=== PATIENT | female | born 1985 | race Caucasian/White ===

== ENCOUNTER 2024-02-18 18:26 | Observation (INO) ==
--- NOTE | 2024-02-18 19:02 | History & Physical Report ---
Date of Service February 18, 2024 Assessment & Plan (1) Uterine contractions: Plan: Pelvic pain and active toco suggestive of PTL, however cervix could be c/w multiparity or labor. Need re-assessment over time to discern. BP initially just into HTN range, and has had one prior elevated BP at recent office visit. Denies MARTINEZ, RUQ pain, new edema, vision changes. Does not c/o urinary symptoms. Will run labs to assess for possible causes including PIH, however seems most suspicious for PTL at this time. 35wk would be eligible for delivery here if so; will notify peds if dx confirms. History of Present Illness Primary Care Provider: NO PCP 38yo at 35w0d presents to L&D without calling ahead. On arrival she c/o contractions that began at 5pm, with low pelvic pain more on the L than the R, that is constant but with peaks that come and go. She is noted to breathe through some of the peaks by the rooming RN. Patient did not take anything or do anything for this and declines tylenol when offered, saying "I don't take medicine." No LOF, no VB, good FM. 3x prior deliveries vaginally at [facility]. Now receiving care with [facility]. noted to be c/b Insulin-requiring GDM for which the patient has refused start of insulin, LGA (EFW's 96 @ bee -->82% more recently), AMA age 38, IVF , mild pyelectasis which has resolved on more recent scans, and Rubella nonimmune status. Allergies Allergy/AdvReac Type Severity Reaction Status Date / Time No Known Allergies Allergy Verified 02/13/24 16:03 Home Medications Medication Instructions Recorded Confirmed Type vit 168-iron 27 mg-folic cap PO 08/17/23 02/13/24 History acid 800 mcg-omega3 235 mg capsule (One-A-Day -1) acetone (urine) test (Ketone Urine #50 ea 09/11/23 02/13/24 Rx Test strips) blood sugar diagnostic (OneTouch #150 ea 09/11/23 02/13/24 Rx Verio test strips) blood-glucose meter (OneTouch #1 ea 09/11/23 02/13/24 Rx Verio Reflect Meter) lancets 33 gauge (OneTouch Delica #150 ea 09/11/23 02/13/24 Rx Plus Lancet) blood-glucose sensor (FreeStyle #2 ea 10/26/23 02/13/24 Rx Arsen 3 Sensor device) Patient History Surgical History H/O bilateral salpingectomy Hx of breast implants, bilateral S/P LEEP of cervix Status post colposcopy Family History (Updated 08/17/23 @ 10:04 by Alba Pal) Grandfather Colorectal cancer Other Abdominal aneurysm Hypertension Stroke Social History (Updated 08/17/23 @ 10:07 by Alba Pal) Smoking Status: Former smoker Do You Dip or Chew Tobacco: No; marital status: Single marital status details: Arnulfo- (28 ) [phone] Current Living Situation: Significant Other Current Living Situation Comment: lives with fob, 3 children, 1 dog, 1 cat, daughter changes litter current occupational status: employed 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
[2024-02-18 19:11] LABS: Mean Corpuscular Hemoglobin 31.9 pg (25.0-34.0); Mean Corpuscular Hgb Conc 34.1 g/dL (32.0-36.0); Mean Corpuscular Volume 93.4 fL (80.0-100.0); Mean Platelet Volume 11.3 fL (9.4-12.4); Platelet Count 187 K/uL (130-400); RDW Coefficient of Variation 12.6 % (11.5-14.5); RDW Standard Deviation 43.3 fL (36.4-46.3); Red Blood Count 4.39 M/uL (4.20-5.40); White Blood Count 10.75 K/ul (4.8-10.8)
[2024-02-18 19:36] LABS: Appearance Urine Clear (Clear); Bilirubin Urine Negative (Negative); Blood Urine Negative (Negative); Color Urine Yellow; Glucose Urine UA Negative (Negative); Ketones Urine Trace (Negative); Leukocyte Esterase Urine Negative (Negative); Nitrite Urine Negative (Negative); Protein Urine Negative (Negative); Specific Gravity Urine 1.007 (1.000-1.030); Urobilinogen Urine Negative (Negative)
[2024-02-18 19:42] LABS: Albumin Globulin Ratio 1.2 (0.9-2); Albumin Level 3.2 gm/dl (3.4-5.0); BUN Creatinine Ratio 10.3 (10-20); Bilirubin,Total 0.4 mg/dl (0.2-1.0); Calcium 8.6 mg/dl (8.6-10.3); Creatinine Clr Calc Pharmacy 108.1 ml/min; Est GFR (African American) 129.5 ml/min; Est GFR (Non-African American) 111.7 ml/min; Globulin 2.6 gm/dl (2.5-4.0); Potassium 3.6 mmol/L (3.5-5.1); Total Protein 5.8 gm/dl (6.0-8.3)
[2024-02-18 19:57] LABS: Total Protein Urine Random 8.1 mg/dl (0-11.9)
[2024-02-18] MEDS ORDERED: LIDOCAINE 1% LOCAL 20 ML VIAL INFIL PRN (20:01)
[2024-02-18] MEDS ORDERED: OXYTOCIN 30 UNITS/NSS 30 UNITS/500 ML BAG IV PRN (20:01)
[2024-02-18 20:02] LABS: Protein Creatinine Ratio Urine 0.2 (0-0.2)
[2024-02-18] MEDS: LACTATED RINGER'S 1,000 ML IV PRN (20:13)
[2024-02-18] MEDS: BETAMETH SOD PHOS/ACETATE IA 6 MG/ML IM STA (20:20)
[2024-02-18] MEDS: PENICILLIN GK 6 MU in DEXTROSE 5% 250 ML IV STA (20:45)
--- NOTE | 2024-02-18 20:46 | Communication Note ---
Date of Service: February 18, 2024 Labs reassuring. Hgb noted at 14 but patient quit smoking 4 years ago, denies nicotine/THC. Cervix changed to 2cm/80/-2, confirming PTL. 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 Discussed 35wk+ we deliver here at [facility], zeke danilea is [facility]. BMTZ would be given now and repeat in 24hr if able. GA too advanced to need Mag for neuroprotection and would not recc tocolysis. Will IV hydrate and hope for stabilization, but ready to manage if labor proceeds. Prior deliveries all at term, although patient had two of her prior deliveries many years ago with one more-recent term . H/o LEEP noted.
[2024-02-19] MEDS: PENICILLIN GK 3 MU in DEXTROSE 5% 100 ML IV PRN (00:40)
--- NOTE | 2024-02-19 09:40 | Obstetrical Progress Note ---
Date of Service February 19, 2024 Assessment & Plan (1) Uterine contractions: (2) with 35 completed weeks gestation: Plan No further evidence of jose. Contractions have spaced and no further cervical change . Plan d/c home. Precautions reviewed. To call with any changes. Come back to labor and delivery tonight at 8pm for second dose of steroids. Fetus category one. Should be seen in the office on or for close f/u. Admission and Anticipated Discharge Date Admission Date: February 18, 2024 Subjective Patient resting comfortably in bed. Notes she is feeling much better this am. Much less pain. Still noting an occasional contraction but much less. Last check was at 8:30am with Dr. Oneil and received sign out from her at 7:30 am. No vb/lof. Good fm. Physical Exam Physical Exam: cx--80/-2, no change form early this am and probably before that as had not been checked since late last night. toco--Q6 or more spaced. efm--category one, reactive nst. Results & Data Vital Signs (Past 12 Hours) Vital Signs Temp Pulse Resp BP 02/19/24 07:02 36.7 C 81 20 111/67 02/19/24 03:09 18 02/19/24 03:09 36.8 C 96 H 18 99/58 L 02/18/24 22:57 36.8 C 89 18 125/71 PG Care Time/CCT Total # of Minutes Spent Total Time Spent with Patient: Total time spent is greater than 50% in coordination of care (as documented) at patient's floor/unit and/or counseling patient: Coding Level of Care Code 49237 SUB INP/OBS CARE 1/25MIN Diagnoses Uterine contractions O47.9 with 35 completed weeks gestation Z3A.35
[2024-02-19] MEDS ORDERED: BETAMETH SOD PHOS/ACETATE IA 6 MG/ML IM SCH (20:15)
== END 2024-02-19 09:58 | disposition home or self-care (01) ==
LOC: OPB 18:26 → 4S1 18:28 → INTOOBSV 20:02 → 4S1 20:02

== ENCOUNTER 2024-03-20 10:47 | Inpatient (IN) ==
[2024-03-20 12:30] LABS: Creatinine Urine Random 62.4 mg/dl; Protein Creatinine Ratio Urine 0.3 (0-0.2); Total Protein Urine Random 15.8 mg/dl (0-11.9)
[2024-03-20 12:36] LABS: Albumin Globulin Ratio 1.2 (0.9-2); BUN Creatinine Ratio 10.8 (10-20); Bilirubin,Total 0.5 mg/dl (0.2-1.0); Calcium 8.6 mg/dl (8.6-10.3); Creatinine Clr Calc Pharmacy 89.7 ml/min; Est GFR (African American) 104.4 ml/min; Est GFR (Non-African American) 90.1 ml/min; Globulin 2.5 gm/dl (2.5-4.0); Total Protein 5.5 gm/dl (6.0-8.3)
[2024-03-20 12:39] LABS: Basophils # (auto) 0.04 K/uL (0.00-0.20); Basophils % (auto) 0.4 %; Hematocrit (blood only) 40.6 % (37.0-47.0); Hemoglobin 14.1 g/dl (12.0-16.0); Immature Granulocytes # (auto) 0.07 K/uL (0.01-0.20); Immature Granulocytes % (auto) 0.7 %; Lymphocytes # (auto) 1.92 K/uL (1.20-3.40); Lymphocytes % (auto) 19.7 %; Mean Corpuscular Hgb Conc 34.7 g/dL (32.0-36.0); Mean Corpuscular Volume 92.3 fL (80.0-100.0); Mean Platelet Volume 11.6 fL (9.4-12.4); Monocytes # (auto) 0.65 K/uL (0.11-0.59); Monocytes % (auto) 6.7 %; Neutrophils # (auto) 6.96 K/uL (1.40-6.50); Neutrophils % (auto) 71.5 %; Platelet Count 175 K/uL (130-400); RDW Coefficient of Variation 12.3 % (11.5-14.5); RDW Standard Deviation 41.8 fL (36.4-46.3); White Blood Count 9.74 K/ul (4.8-10.8)
[2024-03-20] MEDS ORDERED: LIDOCAINE 1% LOCAL 20 ML VIAL INFIL PRN (15:02)
[2024-03-20] MEDS ORDERED: OXYTOCIN 30 UNITS/NSS 30 UNITS/500 ML BAG IV PRN ×2 (15:02→22:09)
--- NOTE | 2024-03-20 15:07 | History & Physical Report ---
Date of Service March 20, 2024 Assessment & Plan (1) Encounter for induction of labor: (2) Gestational diabetes mellitus (GDM) affecting , antepartum: (3) Supervision of elderly multigravida: (4) resulting from in vitro fertilization, antepartum: Plan Pt not really meeting strict criteria for gest htn but has had some bps that are concerning. Offered elective induction. She accepts. Wants arom to start but explained in 1-2hr from arom will plan pitocin and she agrees. Admit, iv, arom when pt ready per nursing, no room to start induction based on avail LD beds. plan rhogam eval pp and mmr pp. History of Present Illness Chief Complaint: elevated bps Primary Care Provider: NO PCP 38yo at 39+wks aryan presented to LD from office with elevated bps. She notes had routine appt today. No woods or visual change or ruq pain at that time. No worsening swelling. BP on arrival here was elevated as well but 4hr l ater did not meet criteria. Still bps in office did meet criteria for gest htn and given her ega offered induction and she desires. Now having woods. Earlier labs checked and nl. Urine prot/creat ratio was .3. She has asked about arom to see if labors but then says she will accept pitocin if needed. Alternative given to go home but would need office eval tomorrow. She prefers to stay for induction. PNC c/b 1. ivf/icsi 2. gdm-- poor compliance, *elevated AC at 93%* note from dietary--postprandial spikes. Will not take insulin. "not really interested in changing diet"-Patient monitoring diet per chart 3. ama 4. Rh neg, had rhogam, eval pp 5. MMR pp PNL rh neg, rubella equiv, gbs neg. OBH: x 3 GYNH: nl paps no stds Allergies Allergy/AdvReac Type Severity Reaction Status Date / Time No Known Allergies Allergy Verified 03/20/24 09:42 Home Medications Medication Instructions Recorded Confirmed Type vit 168-iron 27 mg-folic 1 cap PO DAILY 08/17/23 03/20/24 History acid 800 mcg-omega3 235 mg capsule (One-A-Day -1) acetone (urine) test (Ketone Urine #50 ea 09/11/23 03/20/24 Rx Test strips) blood sugar diagnostic (OneTouch #150 ea 09/11/23 03/20/24 Rx Verio test strips) blood-glucose meter (OneTouch #1 ea 09/11/23 03/20/24 Rx Verio Reflect Meter) lancets 33 gauge (OneTouch Delica #150 ea 09/11/23 03/20/24 Rx Plus Lancet) blood-glucose sensor (FreeStyle #2 ea 10/26/23 03/20/24 Rx Arsen 3 Sensor device) Patient History Medical History (Updated 03/20/24 @ 15:11 by Anais Dean MD, FACOG) In vitro fertilization (spontaneous vaginal delivery) 2004,2005,2018 Surgical History H/O bilateral salpingectomy Hx of breast implants, bilateral Status post colposcopy S/P LEEP of cervix Family History (Updated 08/17/23 @ 10:04 by Alba Pal) Grandfather Colorectal cancer Other Abdominal aneurysm Hypertension Stroke Social History Smoking Status: Never smoker Do You Dip or Chew Tobacco: No; Hx Alcohol Use: No Hx Substance Use: No Preferred Language: Cook Islander Communication Ability: Effective 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 Required: No Beliefs That Will Affect Care: None marital status: Single marital status details: Emmett (28 ) [phone] Current Living Situation: Family and Significant Other Current Living Situation Comment: lives with fob, 3 children, 1 dog, 1 cat, daughter changes litter current occupational status: employed 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 Other Information That Helps Us Care for You: No Feels Safe at Home: Yes Safety Concerns: Feels Safe At This Time Assistive Devices: None Review of Systems as per Subjective / HPI Physical Exam Constitutional: WD/WN, vitals as above Respiratory: normal respiratory effort, lungs clear to auscultation Cardiovascular: Rate/Rhythm: regular rate and regular rhythm Gastrointestinal (Abdomen): soft gravid nt 7-8# efw Musculoskeletal: no edema nontender calves Neurologic: DTRs +2 no clonus Psychiatric: A+Ox3, euthymic affect Genitourinary: Manual OB Exam: + cervical dilation (3cm in office) OB Exam Monitor Tracing: + external FHT monitor used, + external uterine monitor used (irreg), + category I and + normal FHT variability Results & Data Vital Signs (Past 12 Hours) Vital Signs Temp Pulse Resp BP 03/20/24 14:31 99 H 03/20/24 14:31 132/89 03/20/24 11:47 88 03/20/24 11:47 134/92 03/20/24 11:06 98.1 F 20 03/20/24 11:01 89 131/92 Coding Level of Care Code None Diagnoses Encounter for induction of labor Z34.90 Gestational diabetes mellitus (GDM) affecting , antepartum O24.419 Supervision of elderly multigravida O09.529 resulting from in vitro fertilization, antepartum O09.819
[2024-03-20] MEDS: ACETAMINOPHEN 325 MG TAB PO ONE (15:18)
[2024-03-20] MEDS: LACTATED RINGER'S 1,000 ML IV PRN (18:27)
[2024-03-20] MEDS: OXYTOCIN 30 UNITS/NSS 30 UNITS/500 ML BAG IV PRN (18:28)
--- NOTE | 2024-03-20 22:02 | Delivery Summary ---
Vaginal Delivery Summary Date of Service March 20, 2024 Vaginal Delivery Summary The patient dilated to complete and pushed to deliver a viable male Apgars 8 and 8 via over intact perineum. Shoulder dystocia encountered relieved by Sanchez maneuvers and suprapubic pressure and gentle downward traction. Remainder of shoulders and body delivered. Mouth and nose bulb suctioned at perineum. was vigorous and crying at . Cord clamped at 30 seconds of life and infant to maternal abdomen where the cord was then doubly clamped and cut. Placenta delivered spontaneously and intact, three- vessel cord. Hemostasis achieved with dilute pitocin and uterine massage. Cervix and sulci intact. QBL 50 cc. Mother and baby stable in recovery. Circumstances of delivery related to shoulder dystocia and maneuvers used explained to couple. [facility] Vaginal Delivery Charge Delivery Type Details:
[2024-03-20] MEDS ORDERED: HYDROCORTISONE ACETATE 25 MG SUPP PR PRN (22:09)
[2024-03-20] MEDS ORDERED: BENZOCAINE 20% SPRY 85 APPLN/85 GM CAN EXT PRN (22:09)
[2024-03-20] MEDS ORDERED: ACETAMINOPHEN 325 MG TAB PO PRN (22:09)
[2024-03-20] MEDS ORDERED: DIPHTHER/TETAN/PERTUS Vaccine (Tdap, Adol/Adult) 0.5mL IM ONE (22:09)
[2024-03-20] MEDS ORDERED: MEASLES, MUMPS & RUBELLA VIRUS VACCINE (MMR) 0.5ML VIAL SQ ONE (22:09)
[2024-03-20] MEDS: IBUPROFEN 600 MG TAB PO ONE (22:10)
[2024-03-20] MEDS: BENZOCAINE 20% SPRY 85 APPLN/85 GM CAN EXT ONE (22:10)
--- NOTE | 2024-03-21 06:46 | Obstetrical Progress Note ---
Date of Service March 21, 2024 Assessment & Plan (1) care following vaginal delivery: Plan: Doing well Encourage ambulation Pain control Routine post care Admission and Anticipated Discharge Date Admission Date: March 20, 2024 Supervising Physician Co-Signing Physician Notes Resident Physician Supervision Note: I was present with Dr. Monique during the history and exam. I discussed the case with the resident and agree with the findings and plan as documented in the note. Any exceptions or clarifications are listed here: stable routine care. bps are overall ok, but need to monitor. abd soft ff 2 nt, ext nt calves. pedal edema. ppd#1 s/p , rhpos, ri, breast feeding. Documented By: Anais Dean MD, FACOG Subjective 38 yo post day 1 s/p Ambulation: ambulating normally Voiding: no voiding problems Passing Gas:: Yes Diet Tolerance:: regular diet Lochia:: Small Feeding Type:: breast feeding Current Pain Level: minimal Resting comfortably this AM in NAD. Denies MARTINEZ, CP, SOB, N/V/D, LE pain/swelling. Review of Systems Review of Systems: reviewed, per HPI Physical Exam Physical Exam: General: patient resting comfortably, NAD, non-toxic in appearance, answers questions appropriately. Skin: warm, dry, intact HEENT: NC/AT, anicteric sclera, conjunctiva without injection, moist mucus membranes. Heart: +S1/S2, regular, no m/r/g Lungs: equal air entry bilaterally, no rales/rhonchi/wheezes Abd: +BS, soft, NT/ND, uterine fundus firm at umbilicus. Ext: warm, no clubbing/cyanosis or edema, Phoenix's neg. Neuro: nonfocal, speech intact, no facial droop, moving all extremities on command. Results & Data Vital Signs (Past 12 Hours) Vital Signs Temp Pulse Pulse Resp BP BP 03/21/24 04:15 36.5 C 80 18 140/96 03/21/24 00:55 36.5 C 18 138/91 03/21/24 00:05 36.8 C 18 03/20/24 23:57 83 03/20/24 23:57 137/88 03/20/24 23:42 92 H 03/20/24 23:42 134/85 03/20/24 23:37 36.7 C 18 03/20/24 23:27 98 H 03/20/24 23:27 135/92 03/20/24 23:12 90 03/20/24 23:12 143/89 H 03/20/24 22:57 98 H 03/20/24 22:57 135/90 03/20/24 22:55 18 03/20/24 22:42 18 03/20/24 22:42 86 03/20/24 22:42 134/85 03/20/24 22:27 18 03/20/24 22:27 102 H 03/20/24 22:27 133/86 03/20/24 22:12 16 03/20/24 22:12 102 H 03/20/24 22:12 138/74 03/20/24 21:55 18 03/20/24 21:55 109 H 03/20/24 21:55 137/86 03/20/24 20:55 22 03/20/24 20:55 36.5 C 22 03/20/24 20:55 74 03/20/24 20:55 128/70 03/20/24 19:54 89 03/20/24 19:54 155/94 H 03/20/24 19:53 86 03/20/24 19:53 182/110 H 03/20/24 19:03 37.0 C 18 03/20/24 19:03 89 03/20/24 19:03 152/98 H 03/20/24 18:48 84 03/20/24 18:48 131/90 Resident Activity Tracking Resident Involvement: Resident Care Provided Care Provided: Adult Hospital Medicine
[2024-03-21] MEDS: IBUPROFEN 600 MG TAB PO PRN (08:15)
[2024-03-21] MEDS: DOCUSATE SODIUM 100 MG CAP PO SCH (08:15)
[2024-03-21] MEDS: FERROUS SULFATE 325 MG TAB PO SCH (08:15)
[2024-03-21] MEDS: PRENATAL VITAMIN 1 TAB PO SCH (08:15)
[2024-03-21] MEDS: bisacodyL 5 MG TABEC PO SCH (20:30)
[2024-03-22] MEDS ORDERED: bisacodyL 10 MG SUPP PR PRN
--- NOTE | 2024-03-22 07:03 | Obstetrical Progress Note ---
Date of Service March 22, 2024 Assessment & Plan (1) care following vaginal delivery: Plan: Doing well Encourage ambulation Pain control Routine post care dc today Admission and Anticipated Discharge Date Admission Date: March 20, 2024 Supervising Physician Co-Signing Physician Notes Resident Physician Supervision Note: I interviewed and examined the patient. Discussed with Dr. Cesar and agree with findings and plan as documented in the note. Any exceptions or clarifications are listed here: PP2 s/p , doing well. VSS, exam benign and wnl. Stable for dc, will have bp check next week Documented By: Melissa Cash MD Subjective 38 yo post day 2 s/p . BPs have improved and remained normotensive for ~24hrs Ambulation: ambulating normally Voiding: no voiding problems Passing Gas:: Yes Diet Tolerance:: regular diet Lochia:: Small Feeding Type:: breast feeding Current Pain Level: minimal Resting comfortably this AM in NAD. Denies MARTINEZ, CP, SOB, N/V/D, LE pain/swelling. Review of Systems Review of Systems: reviewed, per HPI Physical Exam Physical Exam: General: patient resting comfortably, NAD, non-toxic in appearance, answers questions appropriately. Skin: warm, dry, intact HEENT: NC/AT, anicteric sclera, conjunctiva without injection, moist mucus membranes. Heart: +S1/S2, regular, no m/r/g Lungs: equal air entry bilaterally, no rales/rhonchi/wheezes Abd: +BS, soft, NT/ND, uterine fundus firm at umbilicus. Ext: warm, no clubbing/cyanosis or edema, Phoenix's neg. Neuro: nonfocal, speech intact, no facial droop, moving all extremities. Results & Data Vital Signs (Past 12 Hours) Vital Signs Temp Pulse Resp BP Pulse Ox O2 Del Method 03/22/24 00:05 36.7 C 84 18 119/83 98 Room Air 03/21/24 19:40 36.5 C 90 16 118/69 99 Room Air Resident Activity Tracking Resident Involvement: Resident Care Provided Care Provided: Adult [facility] Medicine
== END 2024-03-22 13:25 | disposition home or self-care (01) | DRG 807 ==
LOC: OPB 10:47 → 4S1 10:49 → 4E2 03-21 00:40